=== PATIENT | female | born 1955 | race American Indian/Alaskan Native ===

== ENCOUNTER 2018-08-15 06:37 | Day surgery (SDC) | payer OTHER ==
[2018-08-15 07:39] LABS: Basophils # (Auto) 0.1 K/mm3 (0.0-0.1); Basophils % (Auto) 1.1 % (0.0-1.8); Eosinophils # (Auto) 0.3 K/mm3 (0.0-0.4); Eosinophils % (Auto) 5.5 % (0.0-4.3); Hemoglobin 12.8 gm/dl (10.1-14.3); Lymphocytes # (Auto) 1.9 K/mm3 (1.2-5.4); Lymphocytes % (Auto) 31.1 % (13.4-35.0); Mean Corpuscular HGB Conc 32 % (30-34); Mean Corpuscular Hemoglobin 23 pg (28-32); Mean Corpuscular Volume 71 fl (79-97); Monocytes # (Auto) 0.5 K/mm3 (0.0-0.8); Monocytes % (Auto) 7.9 % (0.0-7.3); Platelet Count 288 K/mm3 (140-440); Red Blood Count 5.62 M/mm3 (3.65-5.03); Red Cell Distribution Width 15.2 % (13.2-15.2)
[2018-08-15 07:47] LABS: INR 0.87 (0.87-1.13)
[2018-08-15 07:54] LABS: BUN/Creatinine Ratio 31; Blood Urea Nitrogen 22 mg/dL (7-17); Hemolysis Index 9
[2018-08-15] MEDS ORDERED: ECOTRIN PO ONE (08:00)
[2018-08-15] MEDS ORDERED: NACL 0.9% 500 ML 500 ML IV SCH (08:00)
[2018-08-15] MEDS ORDERED: HEPARIN/NS 5000 UNIT/500ML(CATH LAB) 1,000 ML IR ONE (08:35)
[2018-08-15] MEDS ORDERED: VERSED ONE (08:36)
[2018-08-15] MEDS ORDERED: SUBLIMAZE ONE (08:36)
[2018-08-15] MEDS ORDERED: XYLOCAINE 2% INFILTRATI ONE (08:36)
[2018-08-15] MEDS ORDERED: CALAN ONE (08:36)
[2018-08-15] MEDS ORDERED: HEPARIN 10,000 UNITS/10 ML ONE (08:36)
[2018-08-15] MEDS ORDERED: NITROGLYCERIN SYRINGE 3 ML ONE (08:36)
--- NOTE | 2018-08-15 10:29 | Cardiac Catherization Report ---
INDICATION FOR PROCEDURE: A 62-year-old female with history of morbid obesity, chronic systolic hypertension, dilated cardiomyopathy with underlying left bundle branch block. An echocardiogram showed ejection fraction of 25-30% and was scheduled for cardiac catheterization to rule out any underlying ischemic heart disease. The patient denies any chest pain; however, she gets short of breath and presently on medical therapy for her chronic systolic heart failure. The patient is aware of the procedure, potential complications, and alternatives of therapy available. DESCRIPTION OF PROCEDURE: The patient was brought to the catheterization laboratory in a fasting condition. The patient was evaluated for moderate sedation. She was found to be appropriate. The patient was sedated with IV Versed and fentanyl. Subsequently, she was prepared in a standard fashion and sterile drapes were applied. Right radial artery was used for access. Local anesthesia was given and 22 arterial gauge needle was used to puncture the right radial artery. A 5-Omani slender sheath was introduced. 3000 units of intravenous heparin and 5 mg of intra-arterial verapamil were given. A 5-Omani multipurpose catheter was used to obtain the angiograms of the right coronary artery in multiple views, left coronary artery in multiple views followed by left ventriculogram done in JAMES projection using hand injection. At the end of the procedure, catheter and sheath were removed. Good hemostasis was achieved with pressure bandage. It is to be noted the patient was sedated with IV Versed and fentanyl at 9:02 a.m. and ended at 9:13 a.m. The patient was monitored throughout with electrocardiographic, hemodynamic monitoring and pulse oximetry. No untoward complication was noted. At the end of the procedure, the patient is oriented x 3, able to move all the extremities, and breathing normally. The patient was transferred to the room in stable condition. Hemostasis was achieved with radial band. Following findings were noted. HEMODYNAMICS: 1. Opening aortic pressure 141/59, left ventricular pressure 146/20. No gradient across the aortic valve. Estimated ejection fraction 30-35%. 2. Left ventriculogram done in JAMES projection using hand injection showed mildly dilated left ventricle with diffuse hypokinesis, ejection fraction 30-35%. Mitral regurgitation could not be evaluated because of limited amount of dye injected. 3. Right coronary artery dominant vessel arises normally from right coronary cusp. This is tortuous vessel, otherwise, angiographically smooth and normal. Similarly, left coronary artery arises normally from left coronary cusp. Left main, LAD which curves around the apex and its branches, and circumflex artery and its branch are angiographically smooth and normal. FINAL IMPRESSION: 1. Dilated cardiomyopathy with mildly dilated left ventricle with diffuse hypokinesis, ejection fraction 30-35%. Mitral regurgitation could not be evaluated. 2. Normal coronary anatomy with RCA being the dominant vessel. Right radial artery was used for access. Good hemostasis was achieved with pressure bandage. The patient tolerated the moderate sedation well. JOB# [id number] THOMPSON/KRISTEN ANGLIN
[2018-08-15] MEDS ORDERED: NORCO 5/325 ONE (10:46)
--- NOTE | 2018-08-15 13:29 | Short Stay Summary ---
Short Stay Documentation Date of service: 08/15/18 - History H&P: obtained from office - Allergies and Medications Current Medications: Allergies No Known Allergies Allergy (Unverified 08/15/18 06:37) Home Medications Medication Instructions Recorded Confirmed Last Taken Type Amlodipine/Valsartan/Hcthiazid 1 each PO BID 08/15/18 08/15/18 08/15/18 05:45 History [Exforge Hct 10-320-25 mg Tab] Aspirin [Lo-Dose Aspirin EC] 81 mg PO DAILY 08/15/18 08/15/18 08/14/18 History Carvedilol [Coreg] 3.125 mg PO DAILY 08/15/18 08/15/18 08/15/18 05:45 History Cholecalciferol (Vitamin D3) 5,000 unit PO DAILY 08/15/18 08/15/18 08/14/18 History [Vitamin D3] Furosemide [Lasix] 20 mg PO QDAY 08/15/18 08/15/18 08/15/18 05:45 History Potassium Chloride [K-Dur] 20 meq PO QDAY 08/15/18 08/15/18 08/15/18 History Spironolactone [Aldactone] 25 mg PO QDAY 08/15/18 08/15/18 08/15/18 05:45 History Active Medications Sodium Chloride (Nacl 0.9% 500 Ml) 500 mls @ 50 mls/hr IV DIRECT NEW Stop: 08/15/18 17:59 Last Admin: 08/15/18 07:32 Dose: 50 mls/hr - Brief post op/procedure progress note Date of procedure: 08/15/18 Pre-op diagnosis: CMP Post-op diagnosis: other (NICMP) Procedure: [facility] - see dictated cath report Anesthesia: local Estimated blood loss: none Condition: stable - Disposition Condition at discharge: Good Disposition: [id number] TO HOME OR SELFCARE - Discharge Diagnoses (1) Nonischemic cardiomyopathy Status: Chronic (2) Normal coronary arteries Status: Chronic Short Stay Discharge Plan Activity: advance as tolerated Wound: open to air, keep clean and dry, per your surgeon's advice Follow up with: ELVIS FIGUEROA MD [Staff Physician] - 7 Days MODESTA SHAW MD [Primary Care Provider] - 7 Days Forms: CardCath PCI D/C Instructions
[2018-08-15 13:39] VITALS: BP 130/75
== END 2018-08-15 12:30 | disposition home or self-care (01) ==
LOC: CATHLABREC 06:37
PROVIDERS: ATTEND Internal Medicine
DX: I42.0 Dilated cardiomyopathy (principal); I10 Essential (primary) hypertension; M17.0 Bilateral primary osteoarthritis of knee; F17.210 Nicotine dependence, cigarettes, uncomplicated; E66.01 Morbid (severe) obesity due to excess calories; Z68.39 Body mass index [BMI] 39.0-39.9, adult; Z90.710 Acquired absence of both cervix and uterus; Z98.890 Other specified postprocedural states; Z79.899 Other long term (current) drug therapy; Z79.82 Long term (current) use of aspirin; Z79.01 Long term (current) use of anticoagulants
CPT/HCPCS: 36415; 80048; 85025; 85610; 85730; 93005; 93010; 93458; 99156; C1894; J1644; J2250; J3010; J7040; Q9967